=== PATIENT | female | born 1960 | race Caucasian/White ===

== ENCOUNTER 2017-01-01 14:10 | Emergency (ER) | payer OTHER ==
[~2017-01-01] VITALS: Ht 160 cm; Wt 68.0 kg
[~2017-01-01 14:10] MED LIST: ACET500C5 PO; IBUP400T22 PO; UDROBDM PO; loratadine PO
[2017-01-01 14:16] VITALS: Ht 160 cm; Wt 68.0 kg
--- NOTE | 2017-01-01 16:12 | ERD ---
ER Documentation Chief Complaint Date/Time DATE: 01/01/17 TIME: 16:11 Chief Complaint rlq abdominal pain with no gi gu complaints for past few days HPI 56-year-old female with no past medical history presenting with pain under her pannus on the right side. She noticed some redness there as well. She states it is a burning pain. No associated itching. She noticed it 2 days ago. She has been putting triamcinolone cream that she had home on the rash without any improvement. No associated fevers or chills. ROS All systems reviewed and are negative except as per history of present illness. Medications Home Meds Active Scripts Ibuprofen* (Motrin*) 400 Mg Tab, 400 MG PO Q8, #30 TAB 0 Refills Prov:JACKSON JAIN PA-C 02/28/16 Acetaminophen* (Tylophen*) 500 Mg Capsule, 1 CAP PO Q6H Y for PAIN AND OR ELEVATED TEMP, #30 CAP 0 Refills Prov:JACKSON JAIN PA-C 02/28/16 Guaifenesin-Dextromethorphan* (Robitussin* DM) 100MG/10MG/5ML Syrup, 5 ML PO Q6H Y for COUGH, #120 ML 0 Refills Prov:JACKSON JAIN PA-C 02/28/16 Reported Medications [loratadine] No Conflict Check, PO DAILY Y for ITCHING 10/06/15 Allergies Allergies: Coded Allergies: No Known Allergy (Unverified , 01/01/17) PMhx/Soc History of Surgery: Yes () Anesthesia Reaction: No Hx Neurological Disorder: No Hx Respiratory Disorders: Yes (asthma (2 YRS NO INHALER USE)) Hx Cardiac Disorders: No Hx Psychiatric Problems: No Hx Miscellaneous Medical Probl: Yes (GENERALIZED ITCHING 7-8 YRS) Hx Alcohol Use: No Hx Substance Use: No Hx Tobacco Use: No Smoking Status: Never smoker FmHx Family History: No diabetes Physical Exam Vitals Vital Signs Date Time Temp Pulse Resp B/P Pulse Ox O2 Delivery O2 Flow Rate FiO2 01/01/17 14:16 97.8 70 18 142/100 98 Physical Exam Const: Well-appearing, in no distress Head: Atraumatic Resp: Clear to auscultation bilaterally Cardio: Regular rate and rhythm, no murmurs Abd: Soft, non tender, non distended. Normal bowel sounds Skin: Chafing of the skin under the right side of her panniculus, no evidence of fungal infection, no cellulitis, no fluctuance, no induration Back: No midline or flank tenderness Ext: No cyanosis, or edema Neur: Awake and alert Psych: Normal Mood and Affect Procedures/MDM Patient's presenting with chafing underneath her panniculus. There is no evidence of acute bacterial or fungal infection. Home care was discussed. Patient was reassured that her condition was not dangerous. Prevention was also discussed. Patient was discharged in stable condition. Departure Diagnosis: Primary Impression: ASHANTI Olsen MD Jan 01, 2017 16:12
== END 2017-01-01 16:42 | disposition home or self-care (01) ==
LOC: FTE 14:10
DX: L30.4 Erythema intertrigo (principal); J45.909 Unspecified asthma, uncomplicated
CPT/HCPCS: 99282

== ENCOUNTER 2018-04-03 17:46 | Emergency (ER) | END 2018-04-03 20:52 | disposition home or self-care (01) ==

== ENCOUNTER 2018-11-11 11:14 | Emergency (ER) | payer OTHER ==
[~2018-11-11] VITALS: Ht 147.3 cm; Wt 68.7 kg
[~2018-11-11 11:14] MED LIST changes: +GUAI5SYR2 PO; +IBUP-1561 PO; -IBUP400T22 PO; +PSEU120T12 PO; -UDROBDM PO
[2018-11-11 11:37] VITALS: BP 169/77; PULSE 75; RESP 18; Ht 147.3 cm; Wt 68.7 kg
[2018-11-11] MEDS ORDERED: ALBUTEROL 0.083% (NEB) 2.5 MG/3 ML AMP HHN STA (12:04)
--- NOTE | 2018-11-11 12:06 | ERD ---
ER Documentation Chief Complaint Chief Complaint cough x 8 days; urena, hx of bronchitis HPI 58-year-old female, previously healthy, presents to the emergency department, complaining of a days of worsening of upper respiratory symptoms including runny nose, chest congestion, sore throat and cough. The patient refers subjective fever and chills during the last 3 days associated with general malaise. No medications taken at this time. The patient denies chest pain, no shortness of breath. ROS All systems reviewed and are negative except as per history of present illness. Medications Home Meds Active Scripts Inhaler, Assist Devices (Compact Space Chamber) 1 Each Spacer, EACH MC Q4H WHILE AWAKE PRN for COUGH, #1 Prov:VIRIDIANA HOUSE MD 11/11/18 Benzonatate* (Tessalon Perle*) 100 Mg Capsule, 100 MG PO Q8H PRN for COUGH, #12 CAP Prov:VIRIDIANA HOUSE MD 11/11/18 Albuterol Sulfate* (Proair HFA*) 8.5 Gm Hfa.aer.ad, 2 PUFF INH Q4H PRN for WHEEZING AND SOB, #1 INHALER Prov:VIRIDIANA HOUSE MD 11/11/18 Prednisone* (Prednisone*) 20 Mg Tab, 40 MG PO DAILY for 4 Days, TAB Prov:VIRIDIANA HOUSE MD 11/11/18 Amoxicillin* (Amoxicillin*) 500 Mg Cap, 500 MG PO TID for 7 Days, CAP Prov:VIRIDIANA HOUSE MD 11/11/18 Guaifenesin-Dextromethorphan* (Robitussin* DM) 100MG/10MG/5ML Syrup, 10 ML PO Q6H PRN for COUGH, #120 ML Prov:ASHANTI ADAN MD 04/03/18 Pseudoephedrine Hcl (Sudafed 12 Hour) 120 Mg Tablet.sa, 120 MG PO BID PRN for Congestion, #20 Prov:ASHANTI ADAN MD 04/03/18 Ibuprofen* (Motrin*) 400 Mg Tab, 400 MG PO Q8, #30 TAB 0 Refills Prov:JACKSON JAIN PA-C 02/28/16 Acetaminophen* (Tylophen*) 500 Mg Capsule, 1 CAP PO Q6H PRN for PAIN AND OR ELEVATED TEMP, #30 CAP 0 Refills Prov:JACKSON JAIN PA-C 02/28/16 Guaifenesin-Dextromethorphan* (Robitussin* DM) 100MG/10MG/5ML Syrup, 5 ML PO Q6H PRN for COUGH, #120 ML 0 Refills Prov:JACKSON JAIN PA-C 02/28/16 Reported Medications [loratadine] No Conflict Check, PO DAILY PRN for ITCHING 10/06/15 Allergies Allergies: Coded Allergies: No Known Allergy (Unverified , 04/03/18) PMhx/Soc History of Surgery: Yes () Anesthesia Reaction: No Hx Neurological Disorder: No Hx Respiratory Disorders: Yes (asthma (2 YRS NO INHALER USE)) Hx Cardiac Disorders: No Hx Psychiatric Problems: No Hx Miscellaneous Medical Probl: Yes (GENERALIZED ITCHING 7-8 YRS) Hx Alcohol Use: No Hx Substance Use: No Hx Tobacco Use: No Smoking Status: Never smoker FmHx Family History: diabetes; No coronary disease Physical Exam Vitals Vital Signs Date Temp Pulse Resp B/P (MAP) Pulse Ox O2 O2 Flow FiO2 Time Delivery Rate 11/11/18 66 22 96 21 12:30 11/11/18 98.6 75 18 169/77 95 11:37 (107) Physical Exam Const: No acute distress Head: Atraumatic Eyes: Normal Conjunctiva ENT: Normal External Ears, Nose and Mouth. Neck: Full range of motion. No meningismus. Resp: Bilat rhonchi to auscultation bilaterally Cardio: Regular rate and rhythm, no murmurs Abd: Soft, non tender, non distended. Normal bowel sounds Skin: No petechiae or rashes Back: No midline or flank tenderness Ext: No cyanosis, or edema Neur: Awake and alert Psych: Normal Mood and Affect Results 24 hrs Current Medications Medications Dose Sig/Bassem Start Time Status Last (Trade) Ordered Route PRN Stop Time Admin Dose Reason Admin Albuterol 5 mg ONCE STAT 11/11/18 DC 11/11/18 (Proventil HHN 12:04 11/11/18 12:29 0.083% (Neb)) 12:08 Ipratropium 0.5 mg ONCE ONCE 11/11/18 DC 11/11/18 [place] HHN 12:30 11/11/18 12:29 (Atrovent 12:31 0.02% (Neb)) 650 mg ONCE ONCE 11/11/18 DC 11/11/18 Acetaminophen PO 12:30 11/11/18 12:11 (Tylenol 12:31 Tab) Procedures/MDM Vital signs stable, no respiratory distress. Differential diagnosis include but not limited to: Respiratory infection bacterial/viral/fungal. Croup, bronchiolitis, pneumonitis, allergies, GERD. Less likely foreign body aspiration, cardiac related. Physical examination and clinical presentation consistent most likely with viral infection with early superimposed bacterial infection. During the ED course the patient remained stable, no new complaints. Treatment options and clinical impression discussed with Patient who agrees with management. The patient is stable to be treated outpatient and will be discharged home with a Rx for amoxicillin, pro-air and tessalon. Some side effects of prescribed medications (headache, rash, nausea, vomiting, diarrhea, interactions with other medications) were reviewed. The patient needs to follow up with the primary care provider in the next 48h. If symptoms persist, worsen or new symptoms develop, then patient should return to the ED immediately. Disclaimer: Inadvertent spelling and grammatical errors are likely due to EHR/dictation software use and do not reflect on the overall quality of patient care. Also, please note that the electronic time recorded on this note does not necessarily reflect the actual time of the patient encounter. Departure Diagnosis: Primary Impression: Cough Condition: Stable Additional Instructions: Muchas filiberto por [facility] para almanzar servicio. Esperamos que en almanzar visita a la mannie de emergencia almanzar problema medico haya sido solucionado y que se sienta mucho mejor. Para estar seguros que almanzar mejoria sigue en proceso, le pedimos el favor de hacer ellyn jhony de seguimiento medico con almanzar doctor primario en los proximos 2-4 east. Lleve con usted estos documentos y las medicinas recetadas. Si vern sintomas empeoran, NO SE ESPERE, por favor regrese a mannie de emergencia INMEDIATAMENTE. En mirela que usted no tenga un mdico de atencin primaria: Llame al mdico o clnica comunitaria de referencia que aparece abajo ni las horas de consultorio para hacer ellyn jhony para que le vean. CLINICAS: [facility] [phone] [facility] [phone] [facility] [phone] [facility] [phone] [place] [phone] [facility]. [phone] VIRIDIANA PATEL MD Nov 11, 2018 12:06
[2018-11-11] MEDS ORDERED: IPRATROPIUM (NEB) 0.5 MG/2.5 ML AMP HHN ONE (12:30)
[2018-11-11] MEDS ORDERED: ACETAMINOPHEN 325 MG TAB PO ONE (12:30)
[2018-11-11] MEDS ORDERED: INHA-3 MC (12:43)
[2018-11-11] MEDS ORDERED: AMOX500C2 PO (12:43)
[2018-11-11] MEDS ORDERED: PRED20TA PO (12:43)
[2018-11-11] MEDS ORDERED: ALBU8.5H8 INH (12:43)
[2018-11-11] MEDS ORDERED: BENZ-6 PO (12:43)
== END 2018-11-11 13:04 | disposition home or self-care (01) ==
LOC: FTE 11:14
DX: R05 Cough (principal)
CPT/HCPCS: 94664; Z7502; Z7610

== ENCOUNTER 2019-04-27 06:01 | Emergency (ER) | payer OTHER ==
[~2019-04-27] VITALS: Ht 147.3 cm; Wt 67.1 kg
[~2019-04-27 06:01] MED LIST changes: +ALBU8.5H8 INH; +AMOX500C2 PO; +BENZ-6 PO; +INHA-3 MC; +PRED20TA PO
[2019-04-27 06:02] VITALS: RESP 18; Ht 147.3 cm; Wt 67.1 kg
[2019-04-27] MEDS ORDERED: PROMETHAZINE/CODEINE 5ML CUP PO ONE (06:30)
[2019-04-27] MEDS ORDERED: PROM5SYR2 PO (06:36)
--- NOTE | 2019-04-27 06:41 | ERD ---
ER Documentation Chief Complaint Chief Complaint COUGH/ ST X'S 3 DAYS HPI 58-year-old female presents with complaint of cough sore throat for the past 3 days. States that she is been taking Robitussin does not help with the cough. Patient denies fever, night sweats, weight loss, fatigue, hemoptysis, wheezing, dyspnea, pleuritic chest pain, or orthopnea. . Denies alcohol, tobacco, or drug use. Denies drooling, trismus, difficulty swallowing, muffled voice, difficulty breathing, rash, or neck stiffness. Patient states that she has no history of hypertension. Patient denies flank pain, chest pain, headaches, vision problems, dyspnea, hemoptysis, SOB, hematuria. ROS All systems reviewed and are negative except as per history of present illness. Medications Home Meds Active Scripts Promethazine HCl/Codeine (Prometh-Codein 6.25-10 mg/5 ml) 5 Ml Syrup, 5 ML PO Q4, #4 OZ Prov:LEE COX 04/27/19 Inhaler, Assist Devices (Compact Space Chamber) 1 Each Spacer, EACH MC Q4H WHILE AWAKE PRN for COUGH, #1 Prov:VIRIDIANA HOUSE MD 11/11/18 Benzonatate* (Tessalon Perle*) 100 Mg Capsule, 100 MG PO Q8H PRN for COUGH, #12 CAP Prov:VIRIDIANA HOUSE MD 11/11/18 Albuterol Sulfate* (Proair HFA*) 8.5 Gm Hfa.aer.ad, 2 PUFF INH Q4H PRN for WHEEZING AND SOB, #1 INHALER Prov:VIRIDIANA HOUSE MD 11/11/18 Prednisone* (Prednisone*) 20 Mg Tab, 40 MG PO DAILY for 4 Days, TAB Prov:VIRIDIANA HOUSE MD 11/11/18 Amoxicillin* (Amoxicillin*) 500 Mg Cap, 500 MG PO TID for 7 Days, CAP Prov:VIRIDIANA HOUSE MD 11/11/18 Guaifenesin-Dextromethorphan* (Robitussin* DM) 100MG/10MG/5ML Syrup, 10 ML PO Q6H PRN for COUGH, #120 ML Prov:ASHANTI ADAN MD 04/03/18 Pseudoephedrine Hcl (Sudafed 12 Hour) 120 Mg Tablet.sa, 120 MG PO BID PRN for Congestion, #20 Prov:ASHANTI ADAN MD 04/03/18 Ibuprofen* (Motrin*) 400 Mg Tab, 400 MG PO Q8, #30 TAB 0 Refills Prov:JACKSON JAIN PA-C 02/28/16 Acetaminophen* (Tylophen*) 500 Mg Capsule, 1 CAP PO Q6H PRN for PAIN AND OR ELEVATED TEMP, #30 CAP 0 Refills Prov:JACKSON JAIN PA-C 02/28/16 Guaifenesin-Dextromethorphan* (Robitussin* DM) 100MG/10MG/5ML Syrup, 5 ML PO Q6H PRN for COUGH, #120 ML 0 Refills Prov:JACKSON JAIN PA-C 02/28/16 Reported Medications [loratadine] No Conflict Check, PO DAILY PRN for ITCHING 10/06/15 Allergies Allergies: Coded Allergies: No Known Allergy (Unverified , 04/03/18) PMhx/Soc History of Surgery: Yes () Anesthesia Reaction: No Hx Neurological Disorder: No Hx Respiratory Disorders: Yes (asthma) Hx Cardiac Disorders: No Hx Psychiatric Problems: No Hx Miscellaneous Medical Probl: Yes (GENERALIZED ITCHING 7-8 YRS) Hx Alcohol Use: No Hx Substance Use: No Hx Tobacco Use: No Smoking Status: Never smoker FmHx Family History: No diabetes, No coronary disease, No other Physical Exam Vitals Vital Signs Date Temp Pulse Resp B/P (MAP) Pulse Ox O2 O2 Flow FiO2 Time Delivery Rate 04/27/19 97.3 70 18 181/86 97 06:02 (117) Physical Exam Const: No acute distress Head: Atraumatic Eyes: Normal Conjunctiva ENT: Normal External Ears, Nose and Mouth. Tonsils are nonedematous erythematous no exudates bilaterally. Uvula is midline. Neck: Full range of motion. No meningismus. Resp: Clear to auscultation bilaterally Cardio: Regular rate and rhythm, no murmurs Abd: Soft, non tender, non distended. Normal bowel sounds Skin: No petechiae or rashes Back: No midline or flank tenderness Ext: No cyanosis, or edema Neur: Awake and alert Psych: Normal Mood and Affect Results 24 hrs Current Medications Medications Dose Sig/Bassem Start Time Status Last (Trade) Ordered Route PRN Stop Time Admin Dose Reason Admin Promethazine 10 ml ONCE ONCE 04/27/19 DC 04/27/19 HCl/ PO 06:30 06:28 Codeine 04/27/19 06:31 (Phenergan/ Codeine) Procedures/MDM MDM: Patient's presentation is consistent with viral URI. I have low suspicion for tubercolosis, pneumonia, pleural effusion, acute heart failure, foreign body aspiration, pulmonary embolism, pneumothorax, or other emergent etiology. Patients O2 sat is normal and is not having difficulty breathing, therefore patient is fit for discharge. Patient discharged with rx for promethazine with codeine since she stated she wanted something more effective than Robitussin and advised to follow up with PMD. Regarding patient's blood pressure, patient was asymptomatic showing no symptoms of endorgan dysfunction therefore patient was advised to follow-up with PMD for blood pressure control. Patient agreed to do so. At this time, patient is stable for discharge and outpatient management. I have instructed the patient to follow-up with his/her primary care physician in 1-2 days. I have discussed with the patient the possibility of needing to see a specialist for further workup and imaging studies if symptoms persist. I have instructed the patient to promptly return to the ER for any new or worsening symptoms including but not limited to increased pain, fever, nausea, vomiting, weakness or LOC. The patient and/or family expressed understanding of and agreement with this plan. All questions were answered. Home care instructions were provided. DISCLAIMER: Inadvertent spelling and grammatical errors are likely due to EHR/dictation software use and do not reflect on the overall quality of patient care. Also, please note that the electronic time recorded on this note does not necessarily reflect the actual time of the patient encounter. Departure Diagnosis: Primary Impression: URI (upper respiratory infection) URI type: unspecified viral URI Qualified Codes: J06.9 - Acute upper respiratory infection, unspecified Additional Impression: Hypertension Hypertension type: unspecified Qualified Codes: I10 - Essential (primary) hypertension Condition: Stable Patient Instructions: High Blood Pressure (Hypertension), Preventing Common Respiratory Infections Additional Instructions: FOLLOW UP WITH YOUR PRIMARY CARE PHYSICIAN TOMORROW.Return to this facility if you are not improving as expected. LEE COX Apr 27, 2019 06:41
[2019-04-27 06:51] VITALS: BP 142/79; PULSE 82
== END 2019-04-27 06:53 | disposition home or self-care (01) ==
LOC: FTE 06:01
DX: J06.9 Acute upper respiratory infection, unspecified (principal); I10 Essential (primary) hypertension; J45.909 Unspecified asthma, uncomplicated
CPT/HCPCS: Z7502; Z7610; 99283

== ENCOUNTER 2019-07-01 22:47 | Emergency (ER) | payer OTHER ==
[~2019-07-01] VITALS: Ht 152.4 cm; Wt 67.9 kg
[~2019-07-01 22:47] MED LIST changes: +ACYC5CRE7 TOP; +IBUP-1542 PO; +PROM5SYR2 PO; +[UNRECOGNIZED DRUG - CODE] MM
[2019-07-01 22:49] VITALS: Ht 152.4 cm; Wt 67.9 kg
[2019-07-02 00:08] VITALS: BP 179/87; PULSE 63; RESP 21
== END 2019-07-02 00:08 | disposition home or self-care (01) ==
LOC: FTE 22:47
DX: K13.79 Other lesions of oral mucosa (principal); J45.909 Unspecified asthma, uncomplicated
CPT/HCPCS: 99283